=== PATIENT | male | born 1940 | race Caucasian/White ===

== ENCOUNTER → 2018-08-01 17:15 | Outpatient (CLI) | payer MEDICARE, SELFPAY ==
[2018-08-01 18:25] LABS: Basophils % 0.6 % (0.1-2.0); Eosinophils % 0.8 % (0.1-12.0); Hematocrit 41.4 % (42.0-52.0); Lymphocytes % 21.2 % (10-50); Mean Corpuscular HGB Conc 31.4 g/dL (31.8-35.4); Mean Corpuscular Hemoglobin 28.2 pg (27.0-31.2); Mean Corpuscular Volume 89.7 fl (80-94); Mean Platelet Volume 8.4 fl (7.4-10.4); Monocytes # 0.3 K/mm3 (0.1-1.0); Monocytes % 6.3 % (1.7-9.3); Neutrophils # 3.3 K/mm3 (1.8-7.8); Neutrophils % 71.1 % (37.0-80.0); Platelet Count 260 K/mm3 (142-424); Red Blood Count 4.61 M/mm3 (4.60-6.20); Red Cell Distribution Width 13.1 % (11.5-17.5); White Blood Count 4.6 K/mm3 (4.8-10.8)
[2018-08-01 18:43] LABS: Alanine Aminotransferase 27 U/L (12-78); Albumin Level 4.1 gm/dL (3.4-5.0); Albumin/Globulin Ratio 1.3 (1.1-1.8); Alkaline Phosphatase 70 U/L (46-116); Anion Gap 13.1 mEq/L (5-15); Aspartate Amino Transferase 17 U/L (15-37); Bilirubin,Total 0.5 mg/dL (0.2-1.0); Blood Urea Nitrogen 20 mg/dL (7-18); Calcium 9.2 mg/dL (8.5-10.1); Carbon Dioxide 27 mmol/L (21.0-32.0); Chloride 101 mmol/L (98-107); Cholesterol 147 mg/dL (140-200); Creatinine,Serum 1.26 mg/dL (0.70-1.30); Estimated Glomerular Filt Rate 55 ml/min (>60); Free T4 (Free Thyroxine) 0.96 ng/dl (0.76-1.46); GFR (African American) 67 ML/MIN (>60); Globulin 3.2 gm/dl (1.3-3.2); Glucose 325 mg/dL (74-106); HDL Cholesterol 49 mg/dL (27-67); LDL Cholesterol 77 mg/dL (0-130); Potassium 5.1 mmoL/L (3.5-5.1); Sodium 136 mmol/L (136-145); Thyroid Stimulating Hormone 1.82 uIU/ml (0.358-3.740); Total Protein,Serum 7.3 gm/dL (6.4-8.2); Triglycerides 103 mg/dL (30-200); VLDL Cholesterol 21 mg/dL (0-40)
[2018-08-01 18:50] LABS: Hemoglobin A1C 9.9 % (0.0-7.0)
[2018-08-06 06:23] LABS: Vitamin D 25 Hydroxy 31.7 ng/mL (30.0-100.0)
== END ==
PROVIDERS: Visit Provider Emergency Medicine
DX: E11.9 Type 2 diabetes mellitus without complications (principal); Z79.84 Long term (current) use of oral hypoglycemic drugs
CPT/HCPCS: 80053; 80061; 82043; 82652; 83036; 84439; 84443; 85025

== ENCOUNTER → 2018-09-12 13:47 | Outpatient (CLI) | payer MEDICARE, SELFPAY ==
[2018-09-12 14:51] LABS: Blood Urea Nitrogen 25 mg/dL (7-18); Calcium 9.4 mg/dL (8.5-10.1); Carbon Dioxide 24 mmol/L (21.0-32.0); Chloride 101 mmol/L (98-107); Creatinine,Serum 1.51 mg/dL (0.70-1.30); Estimated Glomerular Filt Rate 45 ml/min (>60); GFR (African American) 54 ML/MIN (>60); Glucose 187 mg/dL (74-106); Sodium 135 mmol/L (136-145); Uric Acid 5.8 mg/dL (2.6-7.2)
== END ==
PROVIDERS: Visit Provider Emergency Medicine
DX: E11.9 Type 2 diabetes mellitus without complications (principal); Z79.84 Long term (current) use of oral hypoglycemic drugs
CPT/HCPCS: 80048; 84550

== ENCOUNTER → 2019-01-27 13:33 | Outpatient (CLI) | payer MEDICARE, SELFPAY ==
[2019-01-27 14:02] LABS: Basophils % 0.5 % (0.1-2.0); Eosinophils # 0.1 K/mm3 (0.0-0.4); Hematocrit 46.2 % (42.0-52.0); Hemoglobin 15.1 g/dL (14.1-18.0); Lymphocytes # 1.3 K/mm3 (0.7-4.5); Lymphocytes % 32.3 % (10-50); Mean Corpuscular HGB Conc 32.6 g/dL (31.8-35.4); Mean Corpuscular Hemoglobin 30.6 pg (27.0-31.2); Mean Corpuscular Volume 93.8 fl (80-94); Mean Platelet Volume 10.2 fl (7.4-10.4); Monocytes # 0.2 K/mm3 (0.1-1.0); Monocytes % 5.3 % (1.7-9.3); Neutrophils # 2.5 K/mm3 (1.8-7.8); Neutrophils % 59.9 % (37.0-80.0); Platelet Count 243 K/mm3 (142-424); Red Blood Count 4.92 M/mm3 (4.60-6.20); Red Cell Distribution Width 13.2 % (11.5-17.5); White Blood Count 4.2 K/mm3 (4.8-10.8)
[2019-01-27 14:09] LABS: Hemoglobin A1C 11.1 % (0.0-7.0)
[2019-01-27 14:26] LABS: Alanine Aminotransferase 20 U/L (12-78); Albumin Level 3.9 gm/dL (3.4-5.0); Albumin/Globulin Ratio 1.1 (1.1-1.8); Alkaline Phosphatase 71 U/L (46-116); Aspartate Amino Transferase 11 U/L (15-37); Bilirubin,Total 0.6 mg/dL (0.2-1.0); Blood Urea Nitrogen 23 mg/dL (7-18); Calcium 9.1 mg/dL (8.5-10.1); Carbon Dioxide 27 mmol/L (21.0-32.0); Chloride 100 mmol/L (98-107); Chol/HDL Ratio 3.5 (1-3.5); Cholesterol 178 mg/dL (140-200); Creatinine,Serum 1.56 mg/dL (0.70-1.30); Estimated Glomerular Filt Rate 43 ml/min (>60); GFR (African American) 52 ML/MIN (>60); Globulin 3.5 gm/dl (1.3-3.2); Glucose 342 mg/dL (74-106); HDL Cholesterol 51 mg/dL (27-67); LDL Cholesterol 92 mg/dL (0-130); Sodium 137 mmol/L (136-145); T4 (Thyroxine) 7.3 ug/dl (4.7-13.3); Thyroid Stimulating Hormone 3.07 uIU/ml (0.358-3.740); Total Protein,Serum 7.4 gm/dL (6.4-8.2); Triglycerides 175 mg/dL (30-200); VLDL Cholesterol 35 mg/dL (0-40)
== END ==
PROVIDERS: Visit Provider Nurse Practitioner Family
DX: E11.9 Type 2 diabetes mellitus without complications (principal); G62.9 Polyneuropathy, unspecified
CPT/HCPCS: 80053; 80061; 82652; 83036; 84436; 84443; 85025

== ENCOUNTER → 2019-03-18 15:21 | Outpatient (CLI) | payer MEDICARE, SELFPAY ==
[2019-03-20 10:09] LABS: Creatinine, Urine 72.9 mg/dL (Not Estab.); Microalbumin, Urine 53.4 ug/mL (Not Estab.)
== END ==
PROVIDERS: Visit Provider Nurse Practitioner Family
DX: E11.9 Type 2 diabetes mellitus without complications (principal); Z79.84 Long term (current) use of oral hypoglycemic drugs
CPT/HCPCS: 82043; 82570

== ENCOUNTER → 2019-06-17 17:07 | Outpatient (CLI) | payer MEDICARE, SELFPAY ==
[2019-06-17 17:58] LABS: Chloride 95 mmol/L (98-107); Potassium 5.1 mmoL/L (3.5-5.1); Sodium 132 mmol/L (136-145)
[2019-06-17 18:00] LABS: Alanine Aminotransferase 30 U/L (12-78); Alkaline Phosphatase 75 U/L (38-126); Aspartate Amino Transferase 32 U/L (17-59); Bilirubin,Total 0.4 mg/dl (0.2-1.3); Blood Urea Nitrogen 23 mg/dl (9-20); Estimated Glomerular Filt Rate 53 ml/min (>60); GFR (African American) 64 ML/MIN (>60)
[2019-06-17 18:01] LABS: Albumin Level 4.3 g/dl (3.5-5.0); Albumin/Globulin Ratio 1.5 (1.1-1.8); Anion Gap 17.1 mEq/L (5-15); Calcium 9.8 mg/dl (8.4-10.2); Carbon Dioxide 25 mmol/L (22.0-30.0); Cholesterol 180 mg/dl (140-200); Globulin 2.8 g/dL (1.3-3.2); HDL Cholesterol 45 mg/dl (40-60); Total Protein,Serum 7.1 g/dl (6.3-8.2); Triglycerides 368 mg/dl (30-150); VLDL Cholesterol 74 mg/dL (0-40)
[2019-06-17 18:14] LABS: Direct LDL Cholesterol 111.42 mg/dL (100-129); Glucose 591 mg/dl (74-100)
[2019-06-17 18:18] LABS: Free T4 (Free Thyroxine) 0.84 ng/dl (0.78-2.19)
[2019-06-17 18:32] LABS: Thyroid Stimulating Hormone 1.98 uIU/mL (0.465-4.68)
== END ==
PROVIDERS: Visit Provider Emergency Medicine
DX: E11.9 Type 2 diabetes mellitus without complications (principal); I49.9 Cardiac arrhythmia, unspecified; I10 Essential (primary) hypertension; R35.0 Frequency of micturition; Z79.84 Long term (current) use of oral hypoglycemic drugs
CPT/HCPCS: 80053; 80061; 84439; 84443; 87086; 87088; 87186

== ENCOUNTER → 2019-06-24 07:39 | Outpatient (CLI) | payer MEDICARE, SELFPAY ==
--- NOTE | 2019-06-24 07:41 | CA_ITS ---
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 RVT Ht: 6 ft 2 in Wt: 216lbs BSA: 2.25 BP: 130/74 mmHg Indications: MURMUR,HTN,DM,HLD 2D Dimensions LVOT 2.36 cm (M/F) 1.5-2.5 M-Mode Dimensions RVDd 3.00 cm (0.9-2.6) LVDd 4.29 cm (3.5-5.7) LVDs 3.04 cm (3.5-5.7) IVSd 1.07 cm (0.6-1.1) PWd 0.98 cm (0.6-1.1) EF (Teich) 56.20% FS 29.10% EDV (Teich) 82.60 mL ESV (Teich) 36.20 mL LV Diastology E/A Ratio 0.65 Mitral Valve MV A Velocity 70.00 (40-130 cm/s) Left Ventricle Left atrium is mildly enlarged, left ventricle is normal size, mild concentric left ventricular hypertrophy, visually estimated ejection fraction of 55% with no regional wall motion abnormality, grade 1 diastolic dysfunction seen without tissue Doppler evidence of raise left atrial pressure. Right Ventricle Right atrium and right ventricular mildly enlarged with normal contractility. Aortic Valve Aortic valve is thickened and calcified without aortic stenosis, there is mild aortic insufficiency. Mitral Valve Mitral valve leaflets are minimally thickened, there is no mitral stenosis, there is mild mitral regurgitation. Tricuspid Valve Tricuspid valve is grossly normal, there is mild tricuspid regurgitation, tricuspid regurgitation jet velocity is inadequate for calculation of the right ventricular systolic pressure. Pulmonic Valve Pulmonic valve is poorly visualized. Great Vessels Aortic root is normal size. Pericardium No significant pericardial effusion noted. Conclusion 1. Biatrial enlargement, normal left ventricular size, mild concentric left ventricular hypertrophy, visually estimated ejection fraction 55% with no regional wall motion abnormality, grade 1 diastolic dysfunction seen without tissue Doppler evidence of raise left atrial pressure. 2. Thickened and calcified aortic valve without aortic stenosis, there is mild aortic insufficiency. 3. Mildly enlarged right ventricle with normal contractility. 4. Mild mitral and tricuspid regurgitation. 5. No significant pericardial effusion noted. Electronically signed by : Kevyn Schreiber, 06/25/2019 14:02:38
== END ==
PROVIDERS: PCP Emergency Medicine; Visit Provider Emergency Medicine
DX: R01.1 Cardiac murmur, unspecified (principal)
CPT/HCPCS: 93306

== ENCOUNTER 2019-06-25 14:08 | Observation (INO) | payer MEDICARE, SELFPAY ==
[2019-06-25] VITALS (9 sets, daily range): BP systolic 96–122; BP diastolic 32–71; PULSE 98–123; RESP 18–22; TEMP 37.2–38.6; O2SAT 90–100; BMI 24.4; BMI 26.3
--- NOTE | 2019-06-25 14:19 | HMH.EDGENADL ---
ED Disposition Clinical Impression: SIRS (systemic inflammatory response syndrome), Hyperglycemia Disposition: Admitted as Observation Condition on Discharge: Fair - Critical Care Critical Care Time: Yes Attestation: On 06/25/19, the high probability of a clinically significant, sudden or life threatening deterioration of the following system(s) required my full and direct attention, intervention and personal management. The time I documented below is in addition to time spent performing reported procedures but includes the following listed in this critical care notation. Total Critical Care Time: 40 Vital system(s) involved:: Metabolic Failure My critical care processes included: Assessment & monitoring of V/S, Initial and Re-exams, Data Review/Interpretation, Coordinating Care, Medication Orders and management, Documentation Medical Decision Making - Medical Records Medical records reviewed: Yes: I reviewed the patient's medical records. - Lul Inquiry Pt receiving controlled substance: No Vital Signs: 06/25/19 14:10 06/25/19 14:58 06/25/19 15:10 Temperature 101.5 F H Temperature Source Oral Pulse Rate [Right] 119 H 115 H 123 H Respiratory Rate 22 22 Blood Pressure [Right Arm] 107/32 L 96/57 L 96/57 L Blood Pressure Mean [Right Arm] 57 70 70 Blood Pressure Source [Right Arm] Automatic Cuff Blood Pressure Position [Right Arm] Sitting 02 Sat by Pulse Oximetry 90 L 91 L 100 Oxygen Delivery Method Room Air Nasal Cannula Nasal Cannula Oxygen Flow Rate (LPM) 2 2 06/25/19 16:30 Temperature 99.2 F Temperature Source Oral Pulse Rate [Right] 111 H Respiratory Rate 20 Blood Pressure [Right Arm] 122/71 Blood Pressure Mean [Right Arm] 88 Blood Pressure Source [Right Arm] Blood Pressure Position [Right Arm] 02 Sat by Pulse Oximetry 96 Oxygen Delivery Method Oxygen Flow Rate (LPM) - Lab Data Lab results reviewed: Yes: I reviewed the patient's lab results. Lab Results 06/25/19 14:17: POC Glucose 451 H* 06/25/19 14:30: Urine Color Yellow, Urine Appearance Clear, Urine pH 5.5, Ur Specific [place] 1.020, Urine Protein Trace, Urine Glucose (UA) 3+, Urine Ketones Negative, Urine Blood Negative, Urine Nitrate Negative, Urine Bilirubin Negative, Urine Urobilinogen 0.2, Ur Leukocyte Esterase Negative, Urine RBC 3-5, Urine WBC 10-20, Ur Squamous Epith Cells 5-10, Amorphous Sediment 1+, Urine Bacteria None, Urine Mucus Trace 06/25/19 14:30: WBC 8.0, RBC 4.81, Hgb 14.8, Hct 45.6, MCV 94.9 H, MCH 30.8, MCHC 32.5, RDW 13.2, Plt Count 217, MPV 7.5, Neut % (Auto) 93.1 H, Lymph % (Auto) 2.9 L, [place] % (Auto) 2.9, Eos % (Auto) 0.5, Baso % (Auto) 0.5, Neut # (Auto) 7.5, Lymph # (Auto) 0.2 L, [place] # (Auto) 0.2, Eos # (Auto) 0.0, Baso # (Auto) 0.0, Total Counted 100, Neutrophils % (Manual) 92 H, Band Neutrophils % 1.0, Lymphocytes % (Manual) 3 L, Monocytes % (Manual) 4, Platelet Estimate Normal, RBC Morphology Normal 06/25/19 14:30: Sodium 132 L, Potassium 4.5, Chloride 94 L, Carbon Dioxide 26, Anion Gap 16.5 H, BUN 28 H, Creatinine 1.50 H, Estimated Creat Clear 45, Estimated GFR 45 L, Est GFR ( Amer) 54 L, Glucose 483 H*, Calcium 9.6, Total Bilirubin 0.9, AST 41, ALT 37, Alkaline Phosphatase 83, Troponin I 0.02, Total Protein 7.8, Albumin 4.5, Globulin 3.3 H, Albumin/Globulin Ratio 1.4 06/25/19 14:30: Lactate 3.9 H 06/25/19 14:30: Influenza Type A Ag Negative, Influenza Type B Ag Negative 06/25/19 14:30: Group A Strep Rapid Negative 06/25/19 14:30: Acetone Level None detected 06/25/19 14:30: Specimen Source Left radial, O2 % Room air, ABG pH 7.48 H, ABG pCO2 29.3 L, ABG pO2 56.5 L, ABG HCO3 21.4 L, ABG Total CO2 22.3 L, ABG O2 Saturation 92, ABG Base Excess -2.0, Alvaro Test Acceptable 06/25/19 16:45: Chlamy pneumoniae PCR Not detected, Adenovirus (PCR) Not detected, B. pertussis DNA (PCR) Not detected, Coronavirus OC43 (PCR) Not detected, Coronavirus HKU1 (PCR) Not detected, Coronavirus 229E (PCR) Not detected, COVID-19 PCR Not de
--- NOTE | 2019-06-25 14:28 | ECG_ITS ---
APPROVED REPORT Exam: Resting ECG HR:120 bpm ECG Measurements Heart Rate 120 AXES SC 136 P 24 QRSd 118 QRS -57 QT 344 T 7 QTc 486 <Conclusion> Sinus tachycardia with premature supraventricular complexes Pulmonary disease pattern Right bundle branch block Left anterior fascicular block Bifascicular block Abnormal ECG Electronically signed by : Marcial Fox, 06/25/2019 21:53:09
[2019-06-25 14:40] LABS: POC Glucose,Bedside 451 (70-110)
--- NOTE | 2019-06-25 14:41 | XR_ITS ---
PROCEDURE: XR CHEST PORTABLE CLINICAL HISTORY: soa Shortness of air with cough and fever COMPARISON: XR CHEST 2V from 10/02/2018 FINDINGS: The cardiomediastinal silhouette and pulmonary vascularity are within normal limits. The lungs are clear without infiltrates, suspicious nodules, or pleural effusions. No acute bony abnormalities. IMPRESSION: No acute findings. Dictated by: Alvaro Baer MD 06/25/2019 15:12 Electronically signed by Alvaro Baer MD in [place] 06/25/2019 15:12
[2019-06-25 14:50] LABS: Microscopic, Urine URINE MICROSCOPIC (MICROSCOPIC)
[2019-06-25 14:54] LABS: Appearance,Urine CLEAR (Clear); Bilirubin,Urine Negative (Negative); Blood, Urine Negative (Negative); Color,Urine YELLOW (Yellow); Glucose,Urine (UA) 3+ (Negative); Ketones,Urine Negative (Negative); Leukocyte Esterase,Urine Negative (Negative); Nitrate,Urine Negative (Negative); PH,Urine 5.5 (5.0-8.5); Protein,Urine TRACE (Negative); Urobilinogen,Urine 0.2 EU/dl (0.2)
[2019-06-25 14:55] LABS: Basophils % 0.5 % (0.1-2.0); Eosinophils % 0.5 % (0.1-12.0); Hematocrit 45.6 % (42.0-52.0); Hemoglobin 14.8 g/dL (14.1-18.0); Lymphocytes # 0.2 K/mm3 (0.7-4.5); Lymphocytes % 2.9 % (10-50); Mean Corpuscular HGB Conc 32.5 g/dL (31.8-35.4); Mean Corpuscular Hemoglobin 30.8 pg (27.0-31.2); Mean Corpuscular Volume 94.9 fl (80-94); Mean Platelet Volume 7.5 fl (7.4-10.4); Monocytes # 0.2 K/mm3 (0.1-1.0); Monocytes % 2.9 % (1.7-9.3); Neutrophils # 7.5 K/mm3 (1.8-7.8); Neutrophils % 93.1 % (37.0-80.0); Platelet Count 217 K/mm3 (142-424); Red Blood Count 4.81 M/mm3 (4.60-6.20); Red Cell Distribution Width 13.2 % (11.5-17.5)
[2019-06-25 14:56] LABS: MANUAL DIFFERENTIAL MANUAL DIFFERENTIAL (MANUAL DIFF)
[2019-06-25 14:57] LABS: Strep Scrn Group A (Rapid) Negative (Negative)
[2019-06-25 15:00] LABS: ABG HCO3 21.4 mmhg (22.0-26.0); ABG Oxygen Saturation 92 % (90-100); ABG PCO2 29.3 mmhg (35.0-45.0); ABG PH 7.48 mmol/L (7.35-7.45); ABG PO2 56.5 mmhg (80-100); ABG TCO2 22.3 mmhg (23-27)
[2019-06-25 15:02] LABS: Allen's Test Acceptable; Oxygen ROOM AIR %; Source Left Radial
[2019-06-25 15:05] LABS: Lactic Acid 3.9 mmol/L (0.7-2.1)
[2019-06-25 15:07] LABS: Amorphous Sediment,Urine 1+ /lpf; Mucus,Urine Trace /lpf
--- NOTE | 2019-06-25 15:10 | PC.NURSE ---
notified of pt meeting criteria for severe sepsis
[2019-06-25 15:11] LABS: Troponin I 0.02 ng/ml (0.00-0.034)
[2019-06-25 15:13] LABS: Lymphocytes % 3 % (10-50); Monocytes % 4 % (2-9); Neutrophils % 92 % (42-76); Platelet Estimate Normal; RBC Morphology Normal; Total Cells Counted 100
[2019-06-25 15:14] LABS: Chloride 94 mmol/L (98-107); Potassium 4.5 mmoL/L (3.5-5.1); Sodium 132 mmol/L (136-145)
[2019-06-25 15:17] LABS: Alanine Aminotransferase 37 U/L (12-78); Albumin Level 4.5 g/dl (3.5-5.0); Albumin/Globulin Ratio 1.4 (1.1-1.8); Alkaline Phosphatase 83 U/L (38-126); Anion Gap 16.5 mEq/L (5-15); Aspartate Amino Transferase 41 U/L (17-59); Bilirubin,Total 0.9 mg/dl (0.2-1.3); Blood Urea Nitrogen 28 mg/dl (9-20); Calcium 9.6 mg/dl (8.4-10.2); Carbon Dioxide 26 mmol/L (22.0-30.0); Creatinine Clearance Estimated 45 mL/min (50-200); Estimated Glomerular Filt Rate 45 ml/min (>60); GFR (African American) 54 ML/MIN (>60); Globulin 3.3 g/dL (1.3-3.2); Total Protein,Serum 7.8 g/dl (6.3-8.2)
[2019-06-25 15:18] LABS: Glucose 483 mg/dl (74-100)
[2019-06-25 15:23] LABS: Acetone, Serum (Rapid) None Detected (None Detect)
--- NOTE | 2019-06-25 15:27 | CT_ITS ---
PROCEDURE: CT ABDOMEN PELVIS WO CON CLINICAL INDICATION: abdo pain, fever Abdominal pain and fever COMPARISON: No exams were available for comparison TECHNIQUE: Axial images obtained with sagittal and coronal reformats. All CT scans at the facility use one or more dose reduction, viz: automated exposure control, ma/kV adjustment per patient size (including targeted exams where dose is matched to indication, i.e. head), or iterative reconstruction technique. FINDINGS: LOWER THORAX: There are coronary artery calcifications. There is a small hiatal hernia ABDOMEN & PELVIS: Heterogeneous fatty liver replacement is noted. There has been a prior cholecystectomy. The spleen, adrenal glands, pancreas, has an unremarkable appearance. There are small bilateral renal cyst. No renal or ureteral calculi are evident. No evidence of appendicitis. No intestinal obstruction or free air. There is extensive colonic diverticulosis of the descending and sigmoid colon. There is no evidence of diverticulitis. Prostate is mildly enlarged at 5 cm. There are small bilateral inguinal hernias which contain fat. There postsurgical changes of the left inguinal area There is mild sclerosis of the SI joints on both sides with mild degenerative changes of the hips and lumbar spine. IMPRESSION: 1. No acute abdominal or pelvic findings. 2. Colonic diverticulosis without diverticulitis 3. Mildly enlarged prostate 4. Other nonacute findings as described above. Dictated by: Alvaro Baer MD 06/25/2019 16:08 Electronically signed by Alvaro Baer MD in [facility] 06/25/2019 16:08
--- NOTE | 2019-06-25 16:26 | PC.NURSE ---
[facility] nurse called.
--- NOTE | 2019-06-25 16:40 | PC.NURSE ---
Notified lab that patient would be an in-house COVID swab. Notified ER that they would board patient in ED while waiting on COVID results.
[2019-06-25 16:53] LABS: Adenovirus,PCR Not Detected (NotDetected); Bordetella Pertussis Not Detected (NotDetected); Chlamydophila Pneumoniae, PCR Not Detected (NotDetected); Coronavirus 19, PCR Not Detected (NotDetected); Coronavirus 229E Not Detected (NotDetected); Coronavirus NL63 Not Detected (NotDetected); Coronavirus OC43 Not Detected (NotDetected); Coronovirus HKU1,PCR Not Detected (NotDetected); Human Metapneumovirus Not Detected (NotDetected); Influenza A, PCR Not Detected (NotDetected); Influenza AH1, 2009 Not Detected (NotDetected); Influenza AH1, PCR Not Detected (NotDetected); Influenza AH3,PCR Not Detected (NotDetected); Influenza B, PCR Not Detected (NotDetected); Mycoplasma Pneumoniae, PCR Not Detected (NotDected); Parainfluenza 1, PCR Not Detected (NotDetected); Parainfluenza 2, PCR Not Detected (NotDetected); Parainfluenza 3, PCR Not Detected (NotDetected); Parainfluenza 4, PCR Not Detected (NotDetected); Respiratory Syncytial Virus Not Detected (NotDetected); Rhinovirus/Enterovirus Not Detected (NotDetected)
--- NOTE | 2019-06-25 17:04 | PC.NURSE ---
SPEAKING WITH DR WHIPPLE AT THIS TIME.
--- NOTE | 2019-06-25 17:10 | PC.NURSE ---
Gave family update via phone
--- NOTE | 2019-06-25 17:21 | PC.NURSE ---
Pt to be waiting in ED for results of COVID19 test before being transported to bed, results still pending
--- NOTE | 2019-06-25 18:17 | PC.NURSE ---
Lab notified that covid19 test was negative called house for a bed and notified registration of pt placement
[2019-06-25 18:26] LABS: Troponin I 0.04 ng/ml (0.00-0.034)
[2019-06-25 18:48] LABS: Reflex Lactic Add Lactic Reflex
--- NOTE | 2019-06-25 18:51 | PC.NURSE ---
verified with er that they did not want a third troponin ordered.
[2019-06-25 19:18] LABS: Lactic Acid Follow Up (RFLX 1) 2.2 mmol/L (0.7-2.1)
[2019-06-25 19:22] LABS: POC Glucose,Bedside 284 (70-110)
[2019-06-25 20:36] LABS: Reflex Lactic (2 hrs) Add Lactic Reflex
[2019-06-25 21:04] LABS: Lactic Acid Follow up (RFLX 2) 1.5 mmol/L (0.7-2.1)
[2019-06-25 22:19] LABS: POC Glucose,Bedside 434 (70-110)
[2019-06-26 04:00] VITALS: BP 103/55; PULSE 95; RESP 18; TEMP 38.1; O2SAT 91
[2019-06-26 05:46] VITALS: BMI 26.8
--- NOTE | 2019-06-26 06:00 | PC.NURSE ---
Pt is A&Ox3 and has rested well during the night. Pt denies any pain, N/V/D, or SOB. Pt has continued to has elevated FS requiring SSI coverage. Lungs CTA, room air sats 96%. Pt refused TEDS. Pt's lactic follow up has decreased to 1.5, HR to 85bpm. VSS, call light within reach, will continue to monitor.
[2019-06-26 06:36] LABS: Chloride 100 mmol/L (98-107); Potassium 4.1 mmoL/L (3.5-5.1); Sodium 134 mmol/L (136-145)
[2019-06-26 06:39] LABS: Anion Gap 15.1 mEq/L (5-15); Blood Urea Nitrogen 24 mg/dl (9-20); Carbon Dioxide 23 mmol/L (22.0-30.0); Creatinine Clearance Estimated 65 mL/min (50-200); Estimated Glomerular Filt Rate 58 ml/min (>60); GFR (African American) 70 ML/MIN (>60); Glucose 211 mg/dl (74-100)
[2019-06-26 07:19] LABS: POC Glucose,Bedside 313 (70-110)
--- NOTE | 2019-06-26 07:37 | P.CONPHA_ITS ---
[facility] Pharmacy VTE Monitoring - Patient Demographics Admission date: 06/25/19 Report Date: 06/26/19 Time: 07:37 Allergies/Adverse Reactions: Patient Allergies No Known Allergies Allergy (Verified 06/24/19 08:57) Height: 1.88 m Weight: 94.829 kg Patient Problems: Current Active Problems SIRS (systemic inflammatory response syndrome) (Acute) Hyperglycemia (Acute) - VTE Risk Labs: VTE Related Lab Results Hgb 14.8 g/dL (14.1-18.0) 06/25/19 14:30 Hct 45.6 % (42.0-52.0) 06/25/19 14:30 Plt Count 217 K/mm3 (142-424) 06/25/19 14:30 BUN 24 mg/dl (9-20) H 06/26/19 06:03 Creatinine 1.20 mg/dl (0.66-1.25) 06/26/19 06:03 Estimated Creat Clear 65 mL/min (50-200) 06/26/19 06:03 Was VTE Risk Assessment Performed: Yes VTE Score: 3 VTE Risk Level: Low Risk Clinical Trial Participant: No - Prophylaxis VTE Prophylaxis Ordered?: Yes Types of VTE Prophylaxis: TEDS Knee High
--- NOTE | 2019-06-26 07:52 | HMH.PHAINT ---
HOME MEDICATION RECONCILIATION COMPLETED USING LIST FROM HOME PHARMACY AND LIST FROM DR ROBISON'S OFFICE
[2019-06-26 08:00] VITALS: BP 122/68; PULSE 87; RESP 19; TEMP 37.3; O2SAT 94
[2019-06-26 08:17] VITALS: PULSE 95; RESP 18; O2SAT 91
--- NOTE | 2019-06-26 08:52 | HMH.HP ---
*Admission Date: 06/25/19 *Chief complaint: hyperglycemia *History of present illness: 79 yr old male presents to ed with complains of generalized weakness and elevated blood sugar for the past 2 to 3 days. Pt reports intermittent shortness of breath. He denies cough. He denies any pain. He has had some intermittent vomiting, but denies diarrhea. He was seen is at his primary care provider's office on 06/24/19 for diabetic follow up and medication adjusted and request meds be sent to mail order due to cost of medication, has not started on metformin yet. He says that has not resolved. Pt admitted for elevated glucose, severe sepsis r/t uti. [facility] History I have reviewed the patient's past medical history: Yes Medical History: Reports:: Atrial Fibrillation, Diabetes Mellitus Type 2, Hyperlipidemia, Hypertension, Myocardial Infarction Denies:: Cancer, Diabetes Mellitus Type 1, Internal Pacemaker, MRSA, Seizures *Have you ever received a pneumonia vaccine?: Yes *Have you received a flu vaccine this season?: Yes Laterality Cases: Bilateral: Tonsillectomy Other Surgeries: Yes: Cholecystectomy, Colonoscopy, Hernia Repair, Other. No: Pacemaker Amputation: No Fractures: Yes - *Social History Educational Level: Completed High School Smoking Status: Never smoker Alcohol Intake: never Alcohol Intake Frequency:: holidays/special occasions only Substance Use Type: denies use *Occupational Status:: retired Housing: house Household Members: spouse, children *Travel in the last 8 weeks: None Family Hx:: No significant family history Review of Systems - Review of Systems Review of systems:: pertinent systems reviewed and negative unless documented below - Constitutional Reports fatigue, Reports weakness, Denies body ache(s) - Eyes Denies blurry vision - ENT Denies bleeding gums, Denies sore throat, Denies throat swelling - *Cardiovascular Reports shortness of breath with activity, Denies chest pain at rest - *Respiratory Reports shortness of breath with activity, Denies change in phlegm color, Denies cough - *Gastrointestinal Reports nausea, Reports vomiting, Denies loose stools - *Genitourinary Reports penile discharge, Reports other - *Musculoskeletal Denies joint pain - Integumentary/Breasts Reports rash, Reports other - *Neurologic Reports weakness, Denies burning sensations - Psychiatric Denies anxiety - Endocrine Denies flushing, Denies other - Hematologic/Lymphatic Denies enlarged lymph nodes - Allergic/Immunologic Denies lip swelling Meds Home Medications Medication Instructions Recorded Confirmed Type aspirin 81 mg tablet,delayed 81 mg PO DAILY 09/12/18 06/25/19 History release gabapentin 300 mg capsule 300 mg PO QID 30 Days #120 cap 02/02/19 06/25/19 Rx multivitamin 1 cap PO DAILY 03/18/19 06/25/19 History glimepiride 4 mg tablet 4 mg PO DAILY #90 tab 06/17/19 06/25/19 Rx Metformin HCl [Glucophage] 500 mg PO BID 06/25/19 06/25/19 History Nystatin [Nystatin Cr 100,000 1 applic TOPICAL DAILY 06/25/19 06/25/19 History Units/GM 30GM] Sitagliptin Phosphate [Januvia] 100 mg PO DAILY 06/25/19 06/25/19 History cephALEXin [Cephalexin 500mg Tab] 500 mg PO Q12H 06/25/19 06/26/19 History Atorvastatin Calcium [Atorvastatin 10 mg PO HS 06/26/19 06/26/19 History 10mg Tab] Donepezil HCl [Aricept 10mg 10 mg PO HS 06/26/19 06/26/19 History tablet] Allergies Allergy/AdvReac Type Severity Reaction Status Date / Time No Known Allergies Allergy Verified 06/24/19 08:57 Exam Vital signs and Labs for Last 24 Hours: Temp Pulse Resp BP Pulse Ox 99.2 F 95 H 18 122/68 91 L 06/26/19 08:00 06/26/19 08:17 06/26/19 08:17 06/26/19 08:00 06/26/19 08:17 Laboratory Results - last 24 hr 06/25/19 14:17: POC Glucose 451 H* 06/25/19 14:30: Urine Color Yellow, Urine Appearance Clear, Urine pH 5.5, Ur Specific [place] 1.020, Urine Protein Trace, Urine Glucose (UA) 3+, Urine Ket
[2019-06-26 10:03] LABS: Calcium 7.9 mg/dl (8.4-10.2)
[2019-06-26 11:46] LABS: POC Glucose,Bedside 250 (70-110)
[2019-06-26 12:03] VITALS: BMI 26.9
--- NOTE | 2019-06-26 12:56 | HMH.CONS ---
*Admission Date: 06/25/19 *Reason for consult:: UTI, penile swelling and phimosis. *History of present illness: Patient is an 79-year-old white male referred for recent UTI, penile swelling and phimosis. Patient came to emergency room yesterday with complaints of generalized weakness and intermittent shortness of breath. He is diabetic and there was report of elevated blood sugar the last 2 to 3 days. He was seen at his primary care provider's office on 06/17/2019 for some penile swelling. Patient states he has been unable to retract his foreskin for quite some time. He is not a good historian and is hard of hearing. He denies ability to obtain an erection. CT scan performed on June 24 showed prostate enlargement and small bilateral renal cysts. Blood work showed normal kidney function. Urinalysis showed 3+ glucose 10-20 white cells 3-5 red cells but 5-10 epis making it a contaminated specimen. His white count was normal. Urine culture from June 16 showed strep that was pansensitive. [facility] History Medical History: Reports:: Atrial Fibrillation, Diabetes Mellitus Type 2, Hyperlipidemia, Hypertension, Myocardial Infarction Denies:: Cancer, Diabetes Mellitus Type 1, Internal Pacemaker, MRSA, Seizures *Have you ever received a pneumonia vaccine?: Yes *Have you received a flu vaccine this season?: Yes Laterality Cases: Bilateral: Tonsillectomy Other Surgeries: Yes: Cholecystectomy, Colonoscopy, Hernia Repair, Other. No: Pacemaker Amputation: No Fractures: Yes - *Social History Educational Level: Completed High School Smoking Status: Never smoker Alcohol Intake: never Alcohol Intake Frequency:: holidays/special occasions only Substance Use Type: denies use *Occupational Status:: retired Housing: house Household Members: spouse, children *Travel in the last 8 weeks: None Family Hx:: No significant family history Review of Systems - *Neurologic Reports weakness Meds Home Medications Medication Instructions Recorded Confirmed Type aspirin 81 mg tablet,delayed 81 mg PO DAILY 09/12/18 06/25/19 History release gabapentin 300 mg capsule 300 mg PO QID 30 Days #120 cap 02/02/19 06/25/19 Rx multivitamin 1 cap PO DAILY 03/18/19 06/25/19 History glimepiride 4 mg tablet 4 mg PO DAILY #90 tab 06/17/19 06/25/19 Rx Metformin HCl [Glucophage] 500 mg PO BID 06/25/19 06/25/19 History Nystatin [Nystatin Cr 100,000 1 applic TOPICAL DAILY 06/25/19 06/25/19 History Units/GM 30GM] Sitagliptin Phosphate [Januvia] 100 mg PO DAILY 06/25/19 06/25/19 History cephALEXin [Cephalexin 500mg Tab] 500 mg PO Q12H 06/25/19 06/26/19 History Atorvastatin Calcium [Atorvastatin 10 mg PO HS 06/26/19 06/26/19 History 10mg Tab] Donepezil HCl [Aricept 10mg 10 mg PO HS 06/26/19 06/26/19 History tablet] Allergies Allergy/AdvReac Type Severity Reaction Status Date / Time No Known Allergies Allergy Verified 06/24/19 08:57 Exam Vital signs and Labs for Last 24 Hours: Temp Pulse Resp BP Pulse Ox 99.2 F 95 H 18 122/68 91 L 06/26/19 08:00 06/26/19 08:17 06/26/19 08:17 06/26/19 08:00 06/26/19 08:17 Laboratory Results - last 24 hr 06/25/19 14:17: POC Glucose 451 H* 06/25/19 14:30: Urine Color Yellow, Urine Appearance Clear, Urine pH 5.5, Ur Specific [place] 1.020, Urine Protein Trace, Urine Glucose (UA) 3+, Urine Ketones Negative, Urine Blood Negative, Urine Nitrate Negative, Urine Bilirubin Negative, Urine Urobilinogen 0.2, Ur Leukocyte Esterase Negative, Urine RBC 3-5, Urine WBC 10-20, Ur Squamous Epith Cells 5-10, Amorphous Sediment 1+, Urine Bacteria None, Urine Mucus Trace 06/25/19 14:30: WBC 8.0, RBC 4.81, Hgb 14.8, Hct 45.6, MCV 94.9 H, MCH 30.8, MCHC 32.5, RDW 13.2, Plt Count 217, MPV 7.5, Neut % (Auto) 93.1 H, Lymph % (Auto) 2.9 L, [place] % (Auto) 2.9, Eos % (Auto) 0.5, Baso % (Auto) 0.5, Neut # (Auto) 7.5, Lymph # (Auto) 0.2 L, [place] # (Auto) 0.2, Eos # (Auto) 0.0, Baso # (Auto) 0.0, Total Counted 100, Neutrophils % (Manual) 9
[2019-06-26 16:00] VITALS: BP 91/48; PULSE 84; RESP 18; TEMP 37.7; O2SAT 97
[2019-06-26 16:29] LABS: POC Glucose,Bedside 275 (70-110)
[2019-06-26 17:00] VITALS: TEMP 37.1
--- NOTE | 2019-06-26 17:17 | PC.NURSE ---
Pt has been pleasant and cooperative this shift. Pt is HOOPA and A&O X4. He sat up in the chair for the majority of the AM and went back to bed a short time after lunch. Pt is a stand-by assist when ambulating to the bathroom due to the IV pole. Pt has been trying to ambulate and maneuver the IV pole alone without assistance and frequent education has been given regarding the importance of call light use to prevent falls. Urinal has been placed at bedside and pt has been encouraged to use it for voiding. 18 G peripheral IV in place to the LT forearm patent and infusing NS @ 125 ML/HR. AM assessment remains unchanged and abnormal results still present. Abnormal results are as follows: slightly swollen penis shaft, and redness noted to the penile folds. FSBS results have been 250 and 275, both of which required insulin coverage per MAR (7 units and 10 units). Vital signs have been stable although, temperature at 1600 noted to be 99.9. Follow-up temperature taken at 1700 noted to be 98.7. Call light within reach. Will continue to monitor.
--- NOTE | 2019-06-26 19:08 | PC.NURSE ---
report given to evaristo
[2019-06-26 20:00] VITALS: BP 100/56; PULSE 89; RESP 16; TEMP 37.3; O2SAT 94
[2019-06-26 22:08] LABS: POC Glucose,Bedside 418 (70-110)
--- NOTE | 2019-06-27 02:31 | PC.NURSE ---
A&O X4. PT HAS RESTED WELL T/O THIS SHIFT WITH EYES CLOSED. NO C/O PAIN. BILATERAL LUNG SOUNDS NOTED CLEAR T/O UPON AUSCULTATION. DENIES SOA AND COUGH. TOLERATED RA WELL. PT'S PENIS NOTED RED IN COLOR WITH INFLAMMATION UPON INITIAL ASSESSMENT. PT HAS BEEN USING THE URINAL THIS SHIFT WITH NO C/O DYSURIA. URINE NOTED DARK YELLOW AND CLOUDY. PT'S FS GLU NOTED AT 417 THIS HS. ADMINISTERED METFORMIN AND HUMALOG PER APR. PT REFUSED HS SNACK. REFUSED TEDS. VSS. REMAINS SAFE. CALL LIGHT WITHIN REACH. WILL CONTINUE TO MONITOR.
[2019-06-27 04:00] VITALS: BP 108/51; PULSE 77; RESP 17; TEMP 36.6; O2SAT 95
[2019-06-27 05:00] VITALS: BMI 27.7
[2019-06-27 06:20] LABS: POC Glucose,Bedside 292 (70-110)
[2019-06-27 07:26] LABS: Basophils % 0.3 % (0.1-2.0); Eosinophils # 0.1 K/mm3 (0.0-0.4); Eosinophils % 1.2 % (0.1-12.0); Hematocrit 37.7 % (42.0-52.0); Hemoglobin 12.3 g/dL (14.1-18.0); Lymphocytes # 1.3 K/mm3 (0.7-4.5); Lymphocytes % 26.9 % (10-50); Mean Corpuscular HGB Conc 32.6 g/dL (31.8-35.4); Mean Corpuscular Hemoglobin 30.1 pg (27.0-31.2); Mean Corpuscular Volume 92.3 fl (80-94); Mean Platelet Volume 7.7 fl (7.4-10.4); Monocytes # 0.5 K/mm3 (0.1-1.0); Monocytes % 9.3 % (1.7-9.3); Neutrophils % 62.2 % (37.0-80.0); Platelet Count 188 K/mm3 (142-424); Red Blood Count 4.09 M/mm3 (4.60-6.20); Red Cell Distribution Width 13.6 % (11.5-17.5); White Blood Count 4.9 K/mm3 (4.8-10.8)
[2019-06-27 07:35] LABS: Anion Gap 8.9 mEq/L (5-15); Blood Urea Nitrogen 21 mg/dl (9-20); Calcium 8.1 mg/dl (8.4-10.2); Carbon Dioxide 26 mmol/L (22.0-30.0); Chloride 103 mmol/L (98-107); Creatinine Clearance Estimated 73 mL/min (50-200); Estimated Glomerular Filt Rate 64 ml/min (>60); GFR (African American) 78 ML/MIN (>60); Glucose 190 mg/dl (74-100); Potassium 3.9 mmoL/L (3.5-5.1); Sodium 134 mmol/L (136-145)
[2019-06-27 07:59] VITALS: BP 124/72; PULSE 83; RESP 20; TEMP 36.8; O2SAT 97
--- NOTE | 2019-06-27 08:30 | HMH.DCSUM ---
General - General Admission date:: 06/25/19 Discharge date: 06/27/19 HPI HPI: 79 yr old male presents to ed with complains of generalized weakness and elevated blood sugar for the past 2 to 3 days. Pt reports intermittent shortness of breath. He denies cough. He denies any pain. He has had some intermittent vomiting, but denies diarrhea. He was seen is at his primary care provider's office on 06/24/19 for diabetic follow up and medication adjusted and request meds be sent to mail order due to cost of medication, has not started on metformin yet. He says that has not resolved. Pt admitted for elevated glucose, severe sepsis r/t uti. Hospital Course Hospital Course: pt has improved with ivf and abx - pt with strep uti and had yeast infection penis - pt has been doing better with diabetes as he has been compliant with meds - he was seen by urology-atwalt is an 79-year-old white male referred for recent UTI, penile swelling and phimosis. Patient came to emergency room yesterday with complaints of generalized weakness and intermittent shortness of breath. He is diabetic and there was report of elevated blood sugar the last 2 to 3 days. He was seen at his primary care provider's office on 06/17/2019 for some penile swelling. Patient states he has been unable to retract his foreskin for quite some time. He is not a good historian and is hard of hearing. He denies ability to obtain an erection. CT scan performed on June 24 showed prostate enlargement and small bilateral renal cysts. Blood work showed normal kidney function. Urinalysis showed 3+ glucose 10-20 white cells 3-5 red cells but 5-10 epis making it a contaminated specimen. His white count was normal. Urine culture from June 16 showed strep that was pansensitive. atient with penile phimosis. He states some occasional redness of the foreskin and states a long history of inability to retract it. We discussed that his diabetes contributes to this problem. We discussed the treatment options including circumcision. He is reluctant to undergo circumcision as 1 of his friends had one in the past and warned against it. Would be nice to have talked to his for little additional history she is not present. We discussed that if he has recurrent problems that circumcision would be helpful for him and that good hygiene is important. His opening is large enough to allow him to urinate through the end of the foreskin. There currently is no urgent issue to necessitate phimosis but certainly chronic issues would be a good reason if the patient wishes. Discussion with his may help for him more in the direction of circumcision if needed. pt will be d/c on meds and abx and will have close op follow up to aide in compliance Objective Vital signs: Temp Pulse Resp BP Pulse Ox 98.3 F 83 20 124/72 97 06/27/19 07:59 06/27/19 07:59 06/27/19 07:59 06/27/19 07:59 06/27/19 07:59 no acute distress - *Routine HEENT Exam Head: Present: normocephalic Eye: Present: EOMI, PERRL ENT: Present: mucous membranes moist - *Routine Neck Exam Present: supple - *Routine Respiratory Exam Present: CTA bilaterally - *Routine Cardiovascular Exam Present: RRR - *Routine Abdominal Exam Present: soft - *Routine Extremities Exam Present: pulses intact - *Routine Skin Exam Present: intact - *Routine Neurological Exam Present: alert, CN II-XII intact - Routine Psychiatric Exam Present: normal affect Results Labs on day of discharge: Labs from last 24 hours 06/27/19 06/27/19 06/27/19 07:11 07:11 05:44 WBC 4.9 D RBC 4.09 L Hgb 12.3 L Hct 37.7 L MCV 92.3 MCH 30.1 MCHC 32.6 RDW 13.6 Plt Count 188 MPV 7.7 Neut % (Auto) 62.2 Lymph % (Auto) 26.9 [place] % (Auto) 9.3 Eos % (Auto) 1.2 Baso % (Auto) 0.3 Neut # (Auto) 3.0 Lymph # (Auto) 1.3 [place] # (Auto) 0.5 Eos # (Auto) 0.1 Baso # (Auto) 0.0 Sod
--- NOTE | 2019-06-27 10:38 | HMH.PHAINT ---
DISCHARGE COUNSELING COMPLETED ON PATIENT. PATIENT RECEIVED NEW PRESCRIPTION FOR METFORMIN. COUNSELED PATIENT ON FINISHING COURSE OF ANTIBIOTICS THAT WERE PRESCRIBED. PATIENT IS TO STOP JANUVIA AND GLIMEPERIDE. PATIENT VERBALIZED UNDERSTANDING AND HAD NO QUESTIONS AT THIS TIME. -EZRA ROBERTS, KAYLEED
[2019-06-27 10:46] LABS: POC Glucose,Bedside 283 (70-110)
== END 2019-06-27 11:09 | disposition home or self-care (01) ==
LOC: ER 17:08 → 2ND 06-26 06:12
PROVIDERS: Nurse Practitioner Family; Admitting Provider Internal Medicine Adolescent Medicine; Emergency Provider Emergency Medicine; PCP Emergency Medicine; Visit Provider Emergency Medicine
DX: N39.0 Urinary tract infection, site not specified (principal); R65.10 Systemic inflammatory response syndrome (SIRS) of non-infectious origin without acute organ dysfunction; I48.91 Unspecified atrial fibrillation; I10 Essential (primary) hypertension; I25.2 Old myocardial infarction; E11.65 Type 2 diabetes mellitus with hyperglycemia; Z79.84 Long term (current) use of oral hypoglycemic drugs; N47.1 Phimosis; B37.49 Other urogenital candidiasis; Z79.899 Other long term (current) drug therapy; Z79.82 Long term (current) use of aspirin
CPT/HCPCS: 36415; 71045; 74176; 80048; 80053; 81001; 82009; 82803; 82962; 83605; 84484; 85007; 85025; 87040; 87086; 87275; 87276; 87430; 87581; 87633; 87798; 93005; 93306; 94760; 94761; 96365; 96367; 96375; 99285; G0378; J1335

== ENCOUNTER 2019-06-28 13:20 | Observation (INO) | payer MEDICARE, SELFPAY ==
[2019-06-28] VITALS (17 sets, daily range): BP systolic 91–169; BP diastolic 52–89; PULSE 80–131; RESP 18–40; TEMP 36.6–39.2; O2SAT 94–100; BMI 25.7; BMI 28.4
--- NOTE | 2019-06-28 13:57 | XR_ITS ---
PROCEDURE: XR CHEST PORTABLE CLINICAL HISTORY: sob COMPARISON: XR CHEST 2V from 10/02/2018 XR CHEST PORTABLE from 06/25/2019 FINDINGS: This is a somewhat poor inspiration however the lung bonilla are clear of infiltrate. Cardiac size is borderline however the vascularity is normal and there is no pleural fluid. IMPRESSION: No acute findings. Dictated by: Dr. Georges Garcia MD 06/28/2019 14:[address] Georges Garcia MD in [place] 06/28/2019 14:30
[2019-06-28 14:13] LABS: Basophils % 0.6 % (0.1-2.0); Eosinophils % 0.3 % (0.1-12.0); Hematocrit 42.6 % (42.0-52.0); Hemoglobin 13.7 g/dL (14.1-18.0); Lymphocytes # 1.1 K/mm3 (0.7-4.5); Lymphocytes % 15.2 % (10-50); Mean Corpuscular HGB Conc 32.2 g/dL (31.8-35.4); Mean Corpuscular Hemoglobin 30.4 pg (27.0-31.2); Mean Corpuscular Volume 94.5 fl (80-94); Mean Platelet Volume 8.7 fl (7.4-10.4); Monocytes # 0.4 K/mm3 (0.1-1.0); Monocytes % 4.7 % (1.7-9.3); Neutrophils # 5.8 K/mm3 (1.8-7.8); Neutrophils % 79.2 % (37.0-80.0); Platelet Count 240 K/mm3 (142-424); Red Blood Count 4.51 M/mm3 (4.60-6.20); Red Cell Distribution Width 13.8 % (11.5-17.5); White Blood Count 7.3 K/mm3 (4.8-10.8)
[2019-06-28 14:17] LABS: Chloride 98 mmol/L (98-107); Sodium 134 mmol/L (136-145)
[2019-06-28 14:18] LABS: Potassium 5.1 mmoL/L (3.5-5.1)
[2019-06-28 14:20] LABS: Alanine Aminotransferase 65 U/L (12-78); Alkaline Phosphatase 107 U/L (38-126); Aspartate Amino Transferase 69 U/L (17-59); Bilirubin,Total 0.9 mg/dl (0.2-1.3); Blood Urea Nitrogen 20 mg/dl (9-20); Creatinine Clearance Estimated 62 mL/min (50-200); Estimated Glomerular Filt Rate 58 ml/min (>60); GFR (African American) 70 ML/MIN (>60)
[2019-06-28 14:21] LABS: Albumin Level 4.1 g/dl (3.5-5.0); Albumin/Globulin Ratio 1.2 (1.1-1.8); Anion Gap 19.1 mEq/L (5-15); Carbon Dioxide 22 mmol/L (22.0-30.0); Globulin 3.3 g/dL (1.3-3.2); Total Protein,Serum 7.4 g/dl (6.3-8.2)
[2019-06-28 14:26] LABS: Glucose 479 mg/dl (74-100); Lactic Acid 7.1 mmol/L (0.7-2.1)
[2019-06-28 14:32] LABS: Troponin I 0.23 ng/ml (0.00-0.034)
[2019-06-28 14:33] LABS: Calcium 9.9 mg/dl (8.4-10.2)
[2019-06-28 14:37] LABS: Acetone, Serum (Rapid) None Detected (None Detect)
--- NOTE | 2019-06-28 14:42 | CT_ITS ---
PROCEDURE: CT CHEST WO CON CLINICAL INDICATION: fever, cough COMPARISON: XR CHEST PORTABLE from 06/25/2019 XR CHEST PORTABLE from 06/28/2019 TECHNIQUE: Axial images obtained with sagittal and coronal reformats. All CT scans at the facility use one or more dose reduction, viz: automated exposure control, ma/kV adjustment per patient size (including targeted exams where dose is matched to indication, i.e. head), or iterative reconstruction technique. FINDINGS: HEART AND MEDIASTINAL STRUCTURES: There is borderline cardiomegaly with rounding of the left ventricular contour suggesting mild left ventricular hypertrophy. There is mild aortic tortuosity. There is no pericardial effusion. LUNGS AND PLEURAL SPACES: The lung bonilla are clear of active infiltrate. There is no pleural fluid. BONY STRUCTURES: There are moderate multilevel degenerate changes of the thoracic spine. UPPER ABDOMEN: Unremarkable post cholecystectomy and a small benign-appearing cortical cyst mid pole right kidney ADDITIONAL FINDINGS: IMPRESSION: Borderline cardiomegaly, no acute chest pathology noted Dictated by: Dr. Georges Garcia MD 06/28/2019 15:[address] Georges Garcia MD in [place] 06/28/2019 15:42
--- NOTE | 2019-06-28 14:47 | PC.NURSE ---
RT called with pt VBG results at this times-states she is having difficulty getting them to transmit pH 7.22 CO2 52 PO2 28 Bicarb 20.8 will notify MIKE DOUGLAS
[2019-06-28 14:48] LABS: VBG HCO3 19.7 mmol/L (23-30); VBG Oxygen Saturation 48.1 % (50-70); VBG PCO2 49.7 mmol/L (35-51); VBG PH 7.22 mmol/L (7.31-7.41); VBG PO2 27.5 mmol/L (28-40); VBG Total CO2 21.3 mmol/L (23-27)
[2019-06-28 16:01] LABS: Microscopic, Urine URINE MICROSCOPIC (MICROSCOPIC)
[2019-06-28 16:03] LABS: Appearance,Urine CLEAR (Clear); Bilirubin,Urine Negative (Negative); Blood, Urine TRACE-I (Negative); Color,Urine YELLOW (Yellow); Glucose,Urine (UA) 3+ (Negative); Ketones,Urine 1+ (Negative); Leukocyte Esterase,Urine Negative (Negative); Nitrate,Urine Negative (Negative); PH,Urine 5.5 (5.0-8.5); Protein,Urine TRACE (Negative); Urobilinogen,Urine 0.2 EU/dl (0.2)
[2019-06-28 16:29] LABS: Amorphous Sediment,Urine 2+ /lpf; Coarse Granular Casts,Urine Occasional #/lpf (0); Hyaline Casts,Urine Occasional #/lpf (0); RBC,Urine Occasional #/hpf (0-3); Transitional Epi Cells,Urine OCC #/lpf (0-3)
--- NOTE | 2019-06-28 17:01 | PC.NURSE ---
Dr Kg colbert.
--- NOTE | 2019-06-28 17:02 | PC.NURSE ---
Dr Saul returned call.
--- NOTE | 2019-06-28 17:11 | HMH.EDSOB ---
ED Disposition Clinical Impression: SIRS (systemic inflammatory response syndrome), Yeast dermatitis of penis, Type II diabetes mellitus, Sepsis, Bacteremia Disposition: Admitted as Observation Condition on Discharge: Good Referrals: Wilber Castorena MD [Primary Care Provider] - - Critical Care Critical Care Time: No Attestation: On 06/28/19, the high probability of a clinically significant, sudden or life threatening deterioration of the following system(s) required my full and direct attention, intervention and personal management. The time I documented below is in addition to time spent performing reported procedures but includes the following listed in this critical care notation. Medical Decision Making - Medical Records Medical records reviewed: Yes: I reviewed the patient's medical records. - Lul Inquiry Pt receiving controlled substance: No Vital Signs: 06/28/19 13:51 06/28/19 14:45 06/28/19 15:44 Temperature 102.5 F H Temperature Source Oral Pulse Rate [Left Radial] 122 H 131 H 100 H Respiratory Rate 40 H Blood Pressure [Right Arm] 169/89 H 118/58 L 94/54 L Blood Pressure Mean [Right Arm] 115 78 67 Blood Pressure Source [Right Arm] Automatic Cuff Blood Pressure Position [Right Arm] Sitting Sitting Sitting 02 Sat by Pulse Oximetry 94 L 96 Oxygen Delivery Method Room Air Nasal Cannula Oxygen Flow Rate (LPM) 2 06/28/19 16:14 06/28/19 16:20 06/28/19 16:44 Temperature 99 F Temperature Source Oral Pulse Rate [Left Radial] 101 H 94 H 96 H Respiratory Rate Blood Pressure [Right Arm] 98/65 L 106/63 L 101/63 L Blood Pressure Mean [Right Arm] 76 77 75 Blood Pressure Source [Right Arm] Blood Pressure Position [Right Arm] Sitting Sitting Sitting 02 Sat by Pulse Oximetry 94 L 95 Oxygen Delivery Method Room Air Nasal Cannula Oxygen Flow Rate (LPM) 2 - Lab Data Lab results reviewed: Yes: I reviewed the patient's lab results. Lab Results 06/28/19 12:45: WBC 7.3 D, RBC 4.51 L, Hgb 13.7 L, Hct 42.6, MCV 94.5 H, MCH 30.4, MCHC 32.2, RDW 13.8, Plt Count 240 D, MPV 8.7, Neut % (Auto) 79.2, Lymph % (Auto) 15.2, [place] % (Auto) 4.7, Eos % (Auto) 0.3, Baso % (Auto) 0.6, Neut # (Auto) 5.8, Lymph # (Auto) 1.1, [place] # (Auto) 0.4, Eos # (Auto) 0.0, Baso # (Auto) 0.0 06/28/19 12:45: Sodium 134 L, Potassium 5.1 D, Chloride 98, Carbon Dioxide 22, Anion Gap 19.1 H, BUN 20, Creatinine 1.20, Estimated Creat Clear 62, Estimated GFR 58 L, Est GFR ( Amer) 70, Glucose 479 H*, Calcium 9.9 D, Total Bilirubin 0.9, AST 69 H D, ALT 65 D, Alkaline Phosphatase 107, Troponin I 0.23 H, Total Protein 7.4, Albumin 4.1, Globulin 3.3 H, Albumin/Globulin Ratio 1.2 06/28/19 12:45: Lactate 7.1 H 06/28/19 12:45: Acetone Level None detected 06/28/19 14:26: VBG pH 7.22 L, VBG pCO2 49.7, VBG pO2 27.5 L, VBG HCO3 19.7 L, VBG Total CO2 21.3 L, VBG O2 Saturation 48.1 L, VBG Base Excess -8.0 L 06/28/19 14:50: Urine Color Yellow, Urine Appearance Clear, Urine pH 5.5, Ur Specific [place] 1.020, Urine Protein Trace, Urine Glucose (UA) 3+, Urine Ketones 1+, Urine Blood Trace-i, Urine Nitrate Negative, Urine Bilirubin Negative, Urine Urobilinogen 0.2, Ur Leukocyte Esterase Negative, Urine RBC Occasional, Urine WBC 5-10, Ur Squamous Epith Cells 3-5, Ur Transition Epith Cell Occ, Amorphous Sediment 2+, Urine Bacteria None, Hyaline Casts Occasional, Coarse Granular Casts Occasional Result diagrams: 06/28/19 12:45 06/28/19 12:45 Orders (Tests/Meds): ED MEDICATIONS Generic Name Dose Route Start Last Admin Trade Name Freq PRN Reason Stop Dose Admin Levofloxacin/Dextrose 500 mg in 100 mls @ 100 mls/hr 06/28/19 14:30 06/28/19 14:49 Levaquin 500mg/100ml Premix IV 07/12/19 14:29 100 mls/hr Q24H GUILLE Administration Protocol Sodium Chloride 2,700 mls @ 999 mls/hr 06/28/19 15:00 06/28/19 14:45 Sod Chlor 0.9% 1000ml Bag IV 06/28/19 17:42 999 mls/hr .[id number] ONE Administration Discontinued Medic
--- NOTE | 2019-06-28 17:15 | PC.NURSE ---
Lab at bedside
[2019-06-28 17:23] LABS: Troponin I 0.71 ng/ml (0.00-0.034)
--- NOTE | 2019-06-28 17:23 | PC.NURSE ---
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 gr per ER MD request
[2019-06-28 17:24] LABS: Reflex Lactic Add Lactic Reflex
--- NOTE | 2019-06-28 17:25 | PC.NURSE ---
MIKE DOUGLAS speaking with Dr. Paez.
--- NOTE | 2019-06-28 17:30 | PC.NURSE ---
lab notified of covid-19 test ordered on pt, spoke with
[2019-06-28 17:45] LABS: INR 0.96 (0.9-1.1)
--- NOTE | 2019-06-28 17:47 | PC.NURSE ---
Dr bourgeois speaking with Dr Paez.
--- NOTE | 2019-06-28 17:52 | PC.NURSE ---
lab at bedside
[2019-06-28 17:56] LABS: Lactic Acid Follow Up (RFLX 1) 3.5 mmol/L (0.7-2.1)
[2019-06-28 18:15] LABS: Adenovirus,PCR Not Detected (NotDetected); Bordetella Pertussis Not Detected (NotDetected); Chlamydophila Pneumoniae, PCR Not Detected (NotDetected); Coronavirus 19, PCR Not Detected (NotDetected); Coronavirus 229E Not Detected (NotDetected); Coronavirus NL63 Not Detected (NotDetected); Coronavirus OC43 Not Detected (NotDetected); Coronovirus HKU1,PCR Not Detected (NotDetected); Human Metapneumovirus Not Detected (NotDetected); Influenza A, PCR Not Detected (NotDetected); Influenza AH1, 2009 Not Detected (NotDetected); Influenza AH1, PCR Not Detected (NotDetected); Influenza AH3,PCR Not Detected (NotDetected); Influenza B, PCR Not Detected (NotDetected); Mycoplasma Pneumoniae, PCR Not Detected (NotDected); Parainfluenza 1, PCR Not Detected (NotDetected); Parainfluenza 2, PCR Not Detected (NotDetected); Parainfluenza 3, PCR Not Detected (NotDetected); Parainfluenza 4, PCR Not Detected (NotDetected); Respiratory Syncytial Virus Not Detected (NotDetected); Rhinovirus/Enterovirus Not Detected (NotDetected)
--- NOTE | 2019-06-28 18:32 | PC.NURSE ---
pt c/o generalized pain 10/28
--- NOTE | 2019-06-28 18:40 | PC.NURSE ---
ER MD reports admission orders are complete- waiting on result of Covid-19 rapid test prior to pt being transferred to second floor -in house counsel aware
--- NOTE | 2019-06-28 18:55 | PC.NURSE ---
pt up to bathroom with assist of one
[2019-06-28 19:18] LABS: Reflex Lactic (2 hrs) Add Lactic Reflex
--- NOTE | 2019-06-28 19:26 | PC.NURSE ---
lab called and said swab failed. will have to recollect. spoke with emiliano horner
--- NOTE | 2019-06-28 20:44 | PC.NURSE ---
Awaiting covid results for pt to transferred to [facility]
--- NOTE | 2019-06-28 20:45 | PC.NURSE ---
Spoke with emiliano in the lab, stated covid results are negative
[2019-06-28 20:59] LABS: Lactic Acid Follow up (RFLX 2) 1.9 mmol/L (0.7-2.1)
[2019-06-28 21:14] LABS: Troponin I 0.62 ng/ml (0.00-0.034)
--- NOTE | 2019-06-28 21:41 | PC.NURSE ---
med/surg staff here to get patient
--- NOTE | 2019-06-28 22:09 | PC.NURSE ---
PT ARRUIVED TO THE FLOOR VIA W/C FROM ED @[id number]
[2019-06-28 22:47] LABS: POC Glucose,Bedside 328 (70-110)
[2019-06-29] VITALS (20 sets, daily range): BP systolic 94–145; BP diastolic 43–80; PULSE 70–120; RESP 16–34; TEMP 36.3–37.2; O2SAT 92–98; BMI 28.3
--- NOTE | 2019-06-29 | IR_ITS ---
APPROVED REPORT Patient Location: Inpatient PROCEDURES Left heart catheterization Left ventriculogram Selective coronary angiogram INDICATION Acute non-ST elevation myocardial infarction Informed consent was obtained prior to the procedure. COMPLICATIONS NONE Estimated Blood Loss: LESS THAN 10 ML TECHNIQUE One percent lidocaine used to anesthetize the right anterior aspect of the wrist. The right radial artery was accessed via the Seldinger technique. A 6 [place] sheath was placed in the right radial artery. 2.5 mg of verapamil, 800 mcg of nitroglycerin, 1mg Lidocaine and 5000 U Heparin were given through the arterial sheath. The trap catheter was also used to perform left heart catheterization, left ventriculogram and selective coronary angiogram. At the end of the procedure the sheath was removed good hemostasis was achieved using Traclet band, patient was transferred to the postop holding area in stable condition. ANGIOGRAPHIC RESULTS The left main artery Normal The left anterior descending artery Mild proximal and mid vessel 10% stenoses/luminal irregularities The circumflex artery Mild 10% diffuse luminal irregularities The right coronary artery Dominant with mild 10% diffuse luminal irregularities The SMITH ventriculogram reveals Normal 60% The left ventricular end-diastolic pressure 10 mmHg IMPRESSION Amf-yqmi-mzdinavk coronary artery disease Normal ejection fraction Normal left ventricular end-diastolic pressure PLAN 1. Make sure patient has been adequately assessed for pulmonary embolism given his atrial fibrillation and elevated troponins 2. Medical management for mild [id number]-[id number] coronary artery disease 3. Standard of care therapy for atrial fibrillation which should include Xarelto 20 mg daily plus rate controlling medicines Electronically signed by : Surya Paez, 06/29/2019 13:26:14
--- NOTE | 2019-06-29 03:46 | PC.NURSE ---
A&OX4. PT SLIGHTLY CONFUSED AT TIMES T/O SHIFT. PT TOLERATING RA WELL. NO C/O PAIN, SOA OR NA/VO. PT STATES THAT HE GETS VERY HOT AND SWEATY AT TIMES. PT HAS HAD 2 EPISODES OF DIARRHEA THIS SHIFT. PT UP WITH X1 STANDBY ASSIST IN ROOM. PT HAS SLEPT WELL MAJORITY OF SHIFT. NO OTHER COMPLAINTS THUS FAR, VSS WILL CONTINUE TO MONITOR.
[2019-06-29 06:06] LABS: POC Glucose,Bedside 420 (70-110)
[2019-06-29 07:11] LABS: Basophils % 0.1 % (0.1-2.0); Lymphocytes # 0.5 K/mm3 (0.7-4.5); Lymphocytes % 4.4 % (10-50)
[2019-06-29 07:24] LABS: Eosinophils % 0.1 % (0.1-12.0); Hematocrit 38.8 % (42.0-52.0); Mean Corpuscular HGB Conc 32.6 g/dL (31.8-35.4); Mean Corpuscular Hemoglobin 30.5 pg (27.0-31.2); Mean Corpuscular Volume 93.4 fl (80-94); Mean Platelet Volume 8.1 fl (7.4-10.4); Monocytes # 0.4 K/mm3 (0.1-1.0); Monocytes % 3.9 % (1.7-9.3); Neutrophils # 10.1 K/mm3 (1.8-7.8); Neutrophils % 91.6 % (37.0-80.0); Platelet Count 250 K/mm3 (142-424); Red Blood Count 4.16 M/mm3 (4.60-6.20); Red Cell Distribution Width 13.8 % (11.5-17.5); White Blood Count 11.1 K/mm3 (4.8-10.8)
[2019-06-29 07:29] LABS: Hemoglobin 12.7 g/dL (14.1-18.0)
--- NOTE | 2019-06-29 07:29 | HMH.PHAVTE ---
[facility] Pharmacy VTE Monitoring - Patient Demographics Admission date: 06/29/19 Report Date: 06/29/19 Time: 07:30 Allergies/Adverse Reactions: Patient Allergies No Known Allergies Allergy (Verified 06/24/19 08:57) Height: 1.88 m Weight: 100.357 kg Patient Problems: Current Active Problems SIRS (systemic inflammatory response syndrome) (Acute) Yeast dermatitis of penis (Acute) Sepsis (Acute) Bacteremia (Acute) Type II diabetes mellitus (Chronic) - VTE Risk Labs: VTE Related Lab Results Hgb 12.7 g/dL (14.1-18.0) L 06/29/19 06:36 Hct 38.8 % (42.0-52.0) L 06/29/19 06:36 Plt Count 250 K/mm3 (142-424) 06/29/19 06:36 PT 10.0 seconds (9.4-11.8) 06/28/19 12:45 INR 0.96 (0.9-1.1) 06/28/19 12:45 BUN 20 mg/dl (9-20) 06/28/19 12:45 Creatinine 1.20 mg/dl (0.66-1.25) 06/28/19 12:45 Estimated Creat Clear 62 mL/min (50-200) 06/28/19 12:45 Was VTE Risk Assessment Performed: Yes VTE Risk Level: Low Risk Clinical Trial Participant: No - Prophylaxis VTE Prophylaxis Ordered?: Yes Types of VTE Prophylaxis: TEDS Knee High
[2019-06-29 07:30] LABS: MANUAL DIFFERENTIAL MANUAL DIFFERENTIAL (MANUAL DIFF)
--- NOTE | 2019-06-29 07:50 | HMH.PHAINT ---
HOME MEDICATION RECONCILIATION COMPLETED USING LIST FROM LAST ADMISSION'S DISCHARGE LIST
[2019-06-29 07:56] LABS: Chloride 103 mmol/L (98-107); Sodium 133 mmol/L (136-145)
[2019-06-29 07:58] LABS: Alanine Aminotransferase 74 U/L (12-78); Aspartate Amino Transferase 72 U/L (17-59); Bilirubin,Total 0.6 mg/dl (0.2-1.3); Blood Urea Nitrogen 22 mg/dl (9-20); Creatinine Clearance Estimated 75 mL/min (50-200); Estimated Glomerular Filt Rate 64 ml/min (>60); GFR (African American) 78 ML/MIN (>60)
[2019-06-29 07:59] LABS: Albumin Level 3.2 g/dl (3.5-5.0); Albumin/Globulin Ratio 1.2 (1.1-1.8); Alkaline Phosphatase 96 U/L (38-126); Carbon Dioxide 17 mmol/L (22.0-30.0); Globulin 2.6 g/dL (1.3-3.2); Total Protein,Serum 5.8 g/dl (6.3-8.2)
[2019-06-29 08:16] LABS: Calcium 8.9 mg/dl (8.4-10.2)
[2019-06-29 08:17] LABS: Glucose 404 mg/dl (74-100)
[2019-06-29 08:31] LABS: Lymphocytes % 4 % (10-50); Neutrophils % 95 % (42-76); Platelet Estimate Normal; RBC Morphology Normal; Total Cells Counted 100
--- NOTE | 2019-06-29 08:33 | HMH.CNCARD ---
History of Present Illness Consult date: 06/29/19 Requesting physician: Wilber Castorena Consult reason: shortness of breath Chief complaint: Fatigue, SOA Additional Medical History:: 1. HTN A. Echo, 2015, LVEF 55 to 60% with evidence of diastolic dysfunction. Mild AR MR and trace TR. RVSP 20 to 25 mmHg. B. Echo, 06/2019, 1. Biatrial enlargement, normal left ventricular size, mild concentric left ventricular hypertrophy, visually estimated ejection fraction 55% with no regional wall motion abnormality, grade 1 diastolic dysfunction seen without tissue Doppler evidence of raise left atrial pressure. 2. Thickened and calcified aortic valve without aortic stenosis, there is mild aortic insufficiency. 3. Mildly enlarged right ventricle with normal contractility. 4. Mild mitral and tricuspid regurgitation. 5. No significant pericardial effusion noted. Electronically signed by : Kevyn Schreiber, 06/25/2019 14:02:38 2. Diabetes mellitus, type 2, onset about 2007 A. Poorly controlled B. Peripheral neuropathy 3. Hyperlipidemia A. Statin therapy 4. Poor memory 5. Questionable history of cardiac ablation therapy and/or cardioversion for presumed A. fib, approximately 2014, at [facility] or [facility] in [place], [place] per patient 6. History of [place] per patient possibly related to atrial fibrillation approximately 2014 per patient 7. Surgical history: A. Ventral hernia repair, 2008 B. Cholecystectomy, 2009 C. History of cholecystectomy in 2005 and 2012 History of present illness: 79-year-old male presents the ED with fever and mild shortness of breath and weakness. Patient states he was recently discharged in the hospital as of yesterday. He said he was in the hospital for his elevated blood sugar and a UTI. He stated he felt okay when he was discharged but when he woke up this morning he felt fatigue. Patient's temp is 102.7 rectally. Patient is tachycardic heart rate is 126. Patient's respiratory rate is 28. Patient denies any cough. Patient denies any sore throat or headache. Patient denies any nausea vomiting diarrhea. Patient denies any chest pain. Patient also states that he feels weak in his legs and it is very difficult for him to ambulate. Patient's blood glucose fingerstick was 465. Patient's O2 sats are at 93% on room air. The above per Dr. Turpin [facility] History Medical History: Reports:: Atrial Fibrillation, Hyperlipidemia, Hypertension, Myocardial Infarction Denies:: Cancer, Diabetes Mellitus Type 1, Diabetes Mellitus Type 2, Internal Pacemaker, MRSA, Seizures *Have you ever received a pneumonia vaccine?: Yes *Have you received a flu vaccine this season?: Yes Laterality Cases: Bilateral: Tonsillectomy Other Surgeries: Yes: Cholecystectomy, Colonoscopy, Hernia Repair, Other. No: Pacemaker Amputation: No Fractures: Yes - *Social History Educational Level: Completed High School Smoking Status: Never smoker Alcohol Intake: current Alcohol Intake Frequency:: holidays/special occasions only Substance Use Type: denies use *Occupational Status:: retired Housing: house Household Members: spouse *Travel in the last 8 weeks: None Family Hx:: No significant family history Meds Home Medications Medication Instructions Recorded Confirmed Type aspirin 81 mg tablet,delayed 81 mg PO DAILY 09/12/18 06/28/19 History release gabapentin 300 mg capsule 300 mg PO QID 30 Days #120 cap 02/02/19 06/28/19 Rx multivitamin 1 cap PO DAILY 03/18/19 06/28/19 History Nystatin [Nystatin Cr 100,000 1 applic TOPICAL DAILY 06/25/19 06/28/19 History Units/GM 30GM] Atorvastatin Calcium [Atorvastatin 10 mg PO HS 06/26/19 06/28/19 History 10mg Tab] Donepezil HCl [Aricept 10mg 10 mg PO HS 06/26/19 06/28/19 History tablet] Metformin HCl [Glucophage] 500 mg PO BID 30 Days #60 tab 06/27/19 06/28/19 Rx Allergies Allergy/AdvReac Type Severity Reaction Status Date
--- NOTE | 2019-06-29 09:17 | HMH.HP ---
*Admission Date: 06/29/19 *Chief complaint: heart rate fast *History of present illness: 79-year-old male presented the ED with fever and mild shortness of breath and weakness. Patient states he was recently discharged in the hospital for hyperglycemia and UTI. Pateint stated he felt okay when he was discharged but when he woke up this morning he felt fatigue and shortness of breath. Patient's temp in ED was 102.7 rectally, heart rate is 126,respiratory rate is 28. Patient denies any cough, sore throat or headache. Patient denies any chest pain. Patient also stated that he felt weak in his legs and it is very difficult for him to ambulate. Patient's blood glucose fingerstick in ED was 465. Patient was given Metformin at [facility] but did not garbage pick up man med he is waiting for mail order to get med but he has been taking his daughters while he waits for his to come in.Pt admitted cardiology consult due to elevated troponin. [facility] History I have reviewed the patient's past medical history: Yes Medical History: Reports:: Atrial Fibrillation, Hyperlipidemia, Hypertension, Myocardial Infarction Denies:: Cancer, Diabetes Mellitus Type 1, Diabetes Mellitus Type 2, Internal Pacemaker, MRSA, Seizures *Have you ever received a pneumonia vaccine?: Yes *Have you received a flu vaccine this season?: Yes Laterality Cases: Bilateral: Tonsillectomy Other Surgeries: Yes: Cholecystectomy, Colonoscopy, Hernia Repair, Other. No: Pacemaker Amputation: No Fractures: Yes - *Social History Educational Level: Completed High School Smoking Status: Never smoker Alcohol Intake: current Alcohol Intake Frequency:: holidays/special occasions only Substance Use Type: denies use *Occupational Status:: retired Housing: house Household Members: spouse *Travel in the last 8 weeks: None Family Hx:: No significant family history Review of Systems - Review of Systems Review of systems:: pertinent systems reviewed and negative unless documented below - Constitutional Reports fatigue, Reports weakness - Eyes Denies change in vision - ENT Denies nasal congestion, Denies nose pain, Denies throat swelling - *Cardiovascular Reports shortness of breath, Reports shortness of breath with activity, Denies chest pain - *Respiratory Reports shortness of breath with activity, Denies change in phlegm color - *Gastrointestinal Denies loose stools, Denies nausea, Denies vomiting - *Genitourinary Denies difficulty urinating, Denies urinary hesitancy, Denies urinary incontinence - *Musculoskeletal Denies stiffness - Integumentary/Breasts Reports rash - *Neurologic Denies abnormal movements, Denies fainting, Denies tingling - Psychiatric Denies lack of enjoyment - Endocrine Denies excessive sweating - Hematologic/Lymphatic Denies easy bruising - Allergic/Immunologic Denies itchy eyes Meds Home Medications Medication Instructions Recorded Confirmed Type aspirin 81 mg tablet,delayed 81 mg PO DAILY 09/12/18 06/28/19 History release gabapentin 300 mg capsule 300 mg PO QID 30 Days #120 cap 02/02/19 06/28/19 Rx multivitamin 1 cap PO DAILY 03/18/19 06/28/19 History Nystatin [Nystatin Cr 100,000 1 applic TOPICAL DAILY 06/25/19 06/28/19 History Units/GM 30GM] Atorvastatin Calcium [Atorvastatin 10 mg PO HS 06/26/19 06/28/19 History 10mg Tab] Donepezil HCl [Aricept 10mg 10 mg PO HS 06/26/19 06/28/19 History tablet] Metformin HCl [Glucophage] 500 mg PO BID 30 Days #60 tab 06/27/19 06/28/19 Rx Allergies Allergy/AdvReac Type Severity Reaction Status Date / Time No Known Allergies Allergy Verified 06/24/19 08:57 Exam Vital signs and Labs for Last 24 Hours: Temp Pulse Resp BP Pulse Ox 98.0 F 91 H 17 117/63 95 06/29/19 08:00 06/29/19 08:00 06/29/19 08:00 06/29/19 08:00 06/29/19 08:00 Laboratory Results - last 24 hr 06/28/19 12:45: WBC 7.3 D, RBC 4.51 L, Hgb 13.7 L, Hct 42.6, MCV 94.5 H, MCH 30.4, MCHC 32.2, RDW
[2019-06-29 09:34] LABS: Troponin I 0.61 ng/ml (0.00-0.034)
[2019-06-29 11:43] LABS: POC Glucose,Bedside 449 (70-110)
--- NOTE | 2019-06-29 13:38 | CT_ITS ---
PROCEDURE: CT ANGIO CHEST CLINCIAL INDICATION: SOA, history of A. fib Heart disease COMPARISON: 06/28/2019 TECHNIQUE: IV Contrast: 70ML OPTIRAY 350 Axial images obtained with sagittal and coronal reformats. All CT scans at the facility use one or more dose reduction, viz: automated exposure control, ma/kV adjustment per patient size (including targeted exams where dose is matched to indication, i.e. head), or iterative reconstruction technique. FINDINGS: There is no evidence aortic aneurysm, no central pulmonary embolus is evident. There is a questionable small filling defect within a small sub segmental artery to the anterior segment of the right upper lobe best seen on axial image number 57 raising the question of a small pulmonary embolus. This could even be chronic. There are no other areas of suspected pulmonary emboli. No mediastinal or hilar mass. There are few small hilar lymph nodes on the right. Subcarinal nodes are present measuring up to 2.4 by 1 cm. There is a small hiatal hernia. There are some small paraesophageal nodes present distally. There are coronary artery calcifications. Changes of COPD with right upper lobe atelectatic/fibrotic change. There are small developing bilateral pleural effusions with bibasilar atelectasis. There are some faint ill-defined nodular opacities in both right upper and superior segment right lower lobe which has developed since the previous exam suspicious for areas of pneumonia. Some of these have ground-glass opacity. There is mild thickening of the pericardium with mild cardiomegaly. There are degenerative changes in the thoracic spine. Upper abdominal images show small nodes in the epigastric region measuring up to 1.3 cm. IMPRESSION: 1. Interval development of small bilateral effusions and bibasilar atelectasis as well as faint nodular opacities in the right upper lobe and superior segment right lower lobe suggesting underlying infectious etiology/pneumonia. There is some faint ground-glass attenuation. This is nonspecific and could be seen with atypical/viral pneumonia. 2. No central pulmonary embolus. There is a question of a small subsegmental embolus in the anterior segment of the right upper lobe which could even be chronic. 3. Mildly prominent right hilar and mediastinal as well as upper abdominal lymph nodes. 4. Small hiatal hernia Dictated by: Alvaro Baer MD 06/29/2019 15:25 Electronically signed by Alvaro Baer MD in [place] 06/29/2019 15:25
[2019-06-29 17:13] LABS: POC Glucose,Bedside 380 (70-110)
--- NOTE | 2019-06-29 18:23 | PC.NURSE ---
PT IS RESTING IN BED. NO COMPLAINTS OF DISCOMFORT. PT TOLERATED HEART CATH WELL. 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 [facility] ORDERED [facility] FOR PE PROTOCOL. XARELTO WAS ORDERED DAILY AND PT IS ALREADY ON IV ABX. DRESSING TO RT RADIAL CATH SITE C/D/I. PT HAS AMBULATED TO THE BATHROOM WITH 1 ASSIST. VSS. EATING AND DRINKING WELL. LUNG SOUNDS CLEAR. BOWEL SOUNDS NORMAL. WILL CONTINUE TO MONITOR.
--- NOTE | 2019-06-29 19:11 | PC.NURSE ---
report given to ruben
--- NOTE | 2019-06-29 22:07 | ECG_ITS ---
APPROVED REPORT Exam: Resting ECG HR:120 bpm ECG Measurements Heart Rate 120 AXES MT 224 P QRSd 110 QRS -55 QT 376 T -8 QTc 531 <Conclusion> Atrial fibrillation Left anterior fascicular block Incomplete RBBB Abnormal ECG Electronically signed by : Ge Curry, 07/01/2019 16:01:53
[2019-06-30] VITALS: BP 109/58; PULSE 80; PULSE 95; RESP 24; TEMP 36.5; O2SAT 97
[2019-06-30 01:15] LABS: POC Glucose,Bedside 428 (70-110)
[2019-06-30 02:57] LABS: POC Glucose,Bedside 319 (70-110)
[2019-06-30 02:58] LABS: POC Glucose,Bedside 233 (70-110)
[2019-06-30 04:00] VITALS: BP 111/64; PULSE 79; PULSE 80; RESP 22; TEMP 36.4; O2SAT 95
--- NOTE | 2019-06-30 04:38 | PC.NURSE ---
During assessment at beginning of shift pt had a noticeable increase in his WOB. RR of 34 and pt did c/o mild SOA. No c/o cp,dizziness,N/V at this time. Tele monitor showing HR between 90-128, AFIB. 2LNC applied to pt. EKG obtained and Jeannine notified. New order for PO diltiazem (see provider notification). Pt responded well and has been resting comfortably since w/ no new complaints. Voiding w/o difficulties. Right radial cath drsg is C/D/I w/ no s/s of bleeding or hematoma noted. Pt is back on RA as of 448 w/ resting sat of 94% and tolerating well. Will continue to monitor.
[2019-06-30 04:49] VITALS: O2SAT 94
[2019-06-30 04:53] VITALS: BMI 28.5
[2019-06-30 05:37] LABS: POC Glucose,Bedside 297 (70-110)
[2019-06-30 05:44] VITALS: PULSE 74
[2019-06-30 06:04] LABS: Basophils % 0.1 % (0.1-2.0); Hematocrit 36.9 % (42.0-52.0); Hemoglobin 11.7 g/dL (14.1-18.0); Lymphocytes % 12.4 % (10-50); Mean Corpuscular HGB Conc 31.6 g/dL (31.8-35.4); Mean Corpuscular Hemoglobin 29.3 pg (27.0-31.2); Mean Corpuscular Volume 92.7 fl (80-94); Monocytes # 0.8 K/mm3 (0.1-1.0); Monocytes % 9.4 % (1.7-9.3); Neutrophils # 6.5 K/mm3 (1.8-7.8); Neutrophils % 78.1 % (37.0-80.0); Platelet Count 265 K/mm3 (142-424); Red Blood Count 3.98 M/mm3 (4.60-6.20); Red Cell Distribution Width 13.9 % (11.5-17.5); White Blood Count 8.3 K/mm3 (4.8-10.8)
[2019-06-30 06:06] LABS: Chloride 104 mmol/L (98-107); Potassium 4.3 mmoL/L (3.5-5.1); Sodium 133 mmol/L (136-145)
[2019-06-30 06:09] LABS: Anion Gap 8.3 mEq/L (5-15); Blood Urea Nitrogen 28 mg/dl (9-20); Carbon Dioxide 25 mmol/L (22.0-30.0); Creatinine Clearance Estimated 75 mL/min (50-200); Estimated Glomerular Filt Rate 64 ml/min (>60); GFR (African American) 78 ML/MIN (>60); Glucose 338 mg/dl (74-100)
[2019-06-30 06:10] LABS: Calcium 8.7 mg/dl (8.4-10.2)
--- NOTE | 2019-06-30 07:37 | HMH.PNCARD ---
Subjective Date: 06/30/19 Time: 07:37 Principal diagnosis: PAF, possible PE, pneumonia Interval history: 79-year-old white male in bed in no acute distress. Denies any chest pain, pressure or tightness overnight. Is anxious to go home if possible. Exam Vital signs and Labs for Last 24 Hours: Temp Pulse Resp BP Pulse Ox 97.6 F 74 22 111/64 94 L 06/30/19 04:00 06/30/19 05:44 06/30/19 04:00 06/30/19 04:00 06/30/19 04:49 Laboratory Results - last 24 hr 06/28/19 16:38: POC Glucose 319 H* 06/28/19 17:32: POC Glucose 233 H 06/29/19 06:36: Total Counted 100, Neutrophils % (Manual) 95 H, Band Neutrophils % 1.0, Lymphocytes % (Manual) 4 L, Platelet Estimate Normal, RBC Morphology Normal 06/29/19 06:36: Sodium 133 L, Potassium 4.0 D, Chloride 103, Carbon Dioxide 17 L D, Anion Gap 17.0 H, BUN 22 H, Creatinine 1.10, Estimated Creat Clear 75, Estimated GFR 64, Est GFR ( Amer) 78, Glucose 404 H*, Calcium 8.9 D, Total Bilirubin 0.6, AST 72 H, ALT 74, Alkaline Phosphatase 96, Total Protein 5.8 L, Albumin 3.2 L D, Globulin 2.6, Albumin/Globulin Ratio 1.2 06/29/19 06:36: Troponin I 0.61 H 06/29/19 11:06: POC Glucose 449 H* 06/29/19 16:51: POC Glucose 380 H* 06/29/19 21:19: POC Glucose 428 H* 06/30/19 05:27: POC Glucose 297 H 06/30/19 05:39: WBC 8.3 D, RBC 3.98 L, Hgb 11.7 L, Hct 36.9 L, MCV 92.7, MCH 29.3, MCHC 31.6 L, RDW 13.9, Plt Count 265, MPV 8.0, Neut % (Auto) 78.1, Lymph % (Auto) 12.4, Dickenson % (Auto) 9.4 H, Eos % (Auto) 0.0 L, Baso % (Auto) 0.1, Neut # (Auto) 6.5, Lymph # (Auto) 1.0, Dickenson # (Auto) 0.8, Eos # (Auto) 0.0, Baso # (Auto) 0.0 06/30/19 05:39: Sodium 133 L, Potassium 4.3, Chloride 104, Carbon Dioxide 25 D, Anion Gap 8.3, BUN 28 H D, Creatinine 1.10, Estimated Creat Clear 75, Estimated GFR 64, Est GFR ( Amer) 78, Glucose 338 H, Calcium 8.7 I & O for Last 24 hours: Intake & Output 06/27/19 06/28/19 06/29/19 06/30/19 11:59 11:59 11:59 11:59 Intake Total 3030 / 3030 120 / 120 Output Total 600 / 600 1100 / 1100 Balance 2430 / 2430 -980 / -980 Weight 221 lb 4 oz 222 lb 7 oz - *Routine HEENT Exam Head: Present: normocephalic Eye: Present: EOMI, PERRL ENT: Present: mucous membranes moist - *Routine Respiratory Exam Present: CTA bilaterally. Absent: accessory muscle use, rales, rhonchi, wheezes - *Routine Cardiovascular Exam Present: RRR. Absent: murmur, gallop, rubs - *Routine Extremities Exam Absent: edema, calf tenderness - *Routine Neurological Exam Present: alert, oriented X3, moving all extremities Progress Note: A&P (1) NSTEMI (non-ST elevated myocardial infarction) Problem details: Type II felt secondary to pneumonia and possible PE Status: Acute Current Visit: Yes (2) Hyperlipidemia associated with type 2 diabetes mellitus Status: Acute Current Visit: Yes (3) Poor memory Status: Acute Current Visit: Yes (4) SIRS (systemic inflammatory response syndrome) Status: Acute Current Visit: Yes (5) Type II diabetes mellitus Status: Chronic Current Visit: Yes (6) Yeast dermatitis of penis Status: Acute Current Visit: Yes (7) Dementia Status: Acute Current Visit: No (8) Hearing impairment Status: Acute Current Visit: No (9) Hyperglycemia Status: Acute Current Visit: No (10) PAF (paroxysmal atrial fibrillation) Status: Acute Current Visit: Yes Assessment and Plan for All Diagnoses:: 1. Paroxysmal atrial fibrillation with elevated CHADS score. We will switch short acting diltiazem to diltiazem CD 120 mg daily. Due to his elevated risk for thrombus, patient was started on Xarelto 20 mg daily last evening. 2. Non-ST elevation DC, type II, felt secondary to pneumonia and possible pulmonary embolus. Continue aspirin along with his Xarelto therapy 3. Hyperlipidemia, on statin therapy 4. [id number]-[id number] coronary artery disease by left heart catheterization yesterday. 5. Type 2 diabetes mellitus, per Dr. Barker
[2019-06-30 08:00] VITALS: BP 107/65; PULSE 73; PULSE 90; RESP 22; TEMP 36.7; O2SAT 94
--- NOTE | 2019-06-30 08:36 | HMH.DCSUM ---
General - General Admission date:: 06/28/19 Discharge date: 06/30/19 HPI HPI: 79-year-old male patient sitting up in chair eating breakfast respirations easy even. Discharge home today discussed, he is agreeable to this. Discussed importance of taking medications per instruction in the addition of a blood thinner. 79-year-old male presented the ED with fever and mild shortness of breath and weakness. Patient states he was recently discharged in the hospital for hyperglycemia and UTI. Pateint stated he felt okay when he was discharged but when he woke up this morning he felt fatigue and shortness of breath. Patient's temp in ED was 102.7 rectally, heart rate is 126,respiratory rate is 28. Patient denies any cough, sore throat or headache. Patient denies any chest pain. Patient also stated that he felt weak in his legs and it is very difficult for him to ambulate. Patient's blood glucose fingerstick in ED was 465. 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 Hospital Course Hospital Course: 79-year-old male presented the ED with fever and mild shortness of breath and weakness. Patient states he was recently discharged in the hospital for hyperglycemia and UTI. Pateint stated he felt okay when he was discharged but when he woke up this morning he felt fatigue and shortness of breath. Patient's temp in ED was 102.7 rectally, heart rate is 126,respiratory rate is 28. Patient denies any cough, sore throat or headache. Patient denies any chest pain. Patient also stated that he felt weak in his legs and it is very difficult for him to ambulate. Patient's blood glucose fingerstick in ED was 465. 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 06/27: CXR IMPRESSION: No acute findings. Dictated by: Dr. Garcia 06/27: Chest CT: IMPRESSION: Borderline cardiomegaly, no acute chest pathology noted Dictated by: Dr. Garcia 06/27: Chest CTA IMPRESSION: 1. Interval development of small bilateral effusions and bibasilar atelectasis as well as faint nodular opacities in the right upper lobe and superior segment right lower lobe suggesting underlying infectious etiology/pneumonia. There is some faint ground-glass attenuation. This is nonspecific and could be seen with atypical/viral pneumonia. 2. No central pulmonary embolus. There is a question of a small subsegmental embolus in the anterior segment of the right upper lobe which could even be chronic. 3. Mildly prominent right hilar and mediastinal as well as upper abdominal lymph nodes. 4. Small hiatal hernia Dictated by: Dr. Baer, Virus Panel and COVID -19 NEG. Blood sugars running on high side unsure if he is taking medications properly at home discussed proper routine. 06/28: [facility] ANGIOGRAPHIC RESULTS The left main artery Normal The left anterior descending artery Mild proximal and mid vessel 10% stenoses/luminal irregularities The circumflex artery Mild 10% diffuse luminal irregularities The right coronary artery Dominant with mild 10% diffuse luminal irregularities The SMITH ventriculogram reveals Normal 60% The left ventricular end-diastolic pressure 10 mmHg IMPRESSION [id number]-rzcz-[id number] coronary artery disease Normal ejection fraction Normal left ventricular end-diastolic pressure PLAN 1. Make sure patient has been adequately assessed for pulmonary embolism given his atrial fibrillation and elevated troponins 2. Medical management for mild [id number]-lyvy-axtkllhe coronary artery disease 3. Standard of care therapy for atrial fibrillation which should include Xarelto 20 mg daily plus rate controlling
--- NOTE | 2019-06-30 10:27 | SW/DCPLANNER ---
Addendum entered by Michelle Camarena 06/30/19 13:44: [facility] has accepted this patient for home health services. Services will begin this week for this patient. Addendum entered by Michelle Camarena 06/30/19 11:14: Patient is agreeable to home health services at this time. Patient information has been faxed to Arminda with [facility]. I will follow up with Arminda once patient information is reviewed. Original Note: I have received an order for home health for medication management for this patient. I have spoke with patient regarding home health. Patient has stated that he would need to speak with his prior to making any decisions. I will speak with this patient prior to discharge regarding decision on home health services. Patient will discharge home later today.
--- NOTE | 2019-06-30 11:22 | HMH.PHAINT ---
DISCHARGE COUNSELING--DISCUSSED THE IMPORTANCE OF PATIENT TAKING XARELTO AND DILTIAZEM. ALSO DISCUSSED THE POSSIBLE SIDE EFFECTS OF THE MEDICATIONS.
[2019-06-30 11:35] LABS: POC Glucose,Bedside 353 (70-110)
[2019-06-30 11:50] VITALS: BP 116/65; PULSE 72; RESP 20; TEMP 36.8; O2SAT 94
== END 2019-06-30 12:35 | disposition home health service (06) ==
LOC: ER 16:10 → 2ND 17:22
PROVIDERS: Internal Medicine; Physician Assistant; Admitting Provider Family Medicine; Emergency Provider Family Medicine; PCP Emergency Medicine; Visit Provider Emergency Medicine
DX: J18.9 Pneumonia, unspecified organism (principal); I21.A1 Myocardial infarction type 2; I21.4 Non-ST elevation (NSTEMI) myocardial infarction; I26.99 Other pulmonary embolism without acute cor pulmonale; I48.0 Paroxysmal atrial fibrillation; E11.65 Type 2 diabetes mellitus with hyperglycemia; Z79.84 Long term (current) use of oral hypoglycemic drugs; I10 Essential (primary) hypertension; I25.2 Old myocardial infarction; N47.1 Phimosis; B37.49 Other urogenital candidiasis; Z79.899 Other long term (current) drug therapy; Z79.82 Long term (current) use of aspirin
CPT/HCPCS: 36415; 71045; 71250; 71275; 80048; 80053; 81001; 82009; 82803; 82962; 83605; 84484; 85007; 85025; 85610; 87040; 87581; 87633; 87798; 93005; 93458; 96365; 96366; 96367; 96375; 99152; 99285; C1725; C1769; G0378; J1644; J1956; Q9967

== ENCOUNTER → 2019-11-05 14:09 | Outpatient (CLI) | payer MEDICARE, SELFPAY ==
[2019-11-05 14:16] LABS: Basophils % 0.7 % (0.1-2.0); Eosinophils # 0.1 K/mm3 (0.0-0.4); Eosinophils % 1.2 % (0.1-12.0); Hematocrit 45.4 % (42.0-52.0); Hemoglobin 14.8 g/dL (14.1-18.0); Lymphocytes # 1.3 K/mm3 (0.7-4.5); Lymphocytes % 24.4 % (10-50); Mean Corpuscular HGB Conc 32.5 g/dL (31.8-35.4); Mean Corpuscular Hemoglobin 30.1 pg (27.0-31.2); Mean Corpuscular Volume 92.4 fl (80-94); Mean Platelet Volume 8.4 fl (7.4-10.4); Monocytes # 0.4 K/mm3 (0.1-1.0); Monocytes % 6.4 % (1.7-9.3); Neutrophils # 3.7 K/mm3 (1.8-7.8); Neutrophils % 67.3 % (37.0-80.0); Platelet Count 301 K/mm3 (142-424); Red Blood Count 4.91 M/mm3 (4.60-6.20); White Blood Count 5.5 K/mm3 (4.8-10.8)
[2019-11-05 15:00] LABS: Chloride 102 mmol/L (98-107); Sodium 142 mmol/L (136-145)
[2019-11-05 15:03] LABS: Alanine Aminotransferase 14 U/L (12-78); Albumin Level 4.6 g/dl (3.5-5.0); Albumin/Globulin Ratio 1.4 (1.1-1.8); Alkaline Phosphatase 65 U/L (38-126); Aspartate Amino Transferase 29 U/L (17-59); Bilirubin,Total 0.5 mg/dl (0.2-1.3); Blood Urea Nitrogen 28 mg/dl (9-20); Calcium 10.2 mg/dl (8.4-10.2); Carbon Dioxide 28 mmol/L (22.0-30.0); Cholesterol 161 mg/dl (140-200); Estimated Glomerular Filt Rate 58 ml/min (>60); GFR (African American) 70 ML/MIN (>60); Globulin 3.2 g/dL (1.3-3.2); Glucose 113 mg/dl (74-100); HDL Cholesterol 58 mg/dl (40-60); Total Protein,Serum 7.8 g/dl (6.3-8.2); Triglycerides 197 mg/dl (30-150); VLDL Cholesterol 39 mg/dL (0-40)
[2019-11-05 15:14] LABS: Direct LDL Cholesterol 83.75 mg/dL (100-129)
[2019-11-05 15:32] LABS: Thyroid Stimulating Hormone 2.35 uIU/mL (0.465-4.68)
[2019-11-05 15:57] LABS: Hemoglobin A1C 9.1 % (4.0-6.0)
[2019-11-05 18:58] LABS: Chol/HDL Ratio 2.8 (1-3.5)
== END ==
PROVIDERS: Visit Provider Nurse Practitioner Family
DX: E11.620 Type 2 diabetes mellitus with diabetic dermatitis (principal); E78.5 Hyperlipidemia, unspecified; Z79.84 Long term (current) use of oral hypoglycemic drugs
CPT/HCPCS: 80053; 80061; 83036; 84436; 84443; 85025